=== PATIENT | female | born 1980 | race African-American/Black ===

== ENCOUNTER → 2018-07-17 16:20 | Outpatient (CLI) | payer SELFPAY ==
--- NOTE | 2018-07-17 16:20 | LES_PTH ---
PATIENT: TIMMY RYDER LOC: [facility] U#:[id number] AGE/SX: 44/F ROOM: RE07/17/[address]: Dr. Murphy Fuller MD : [id number] BED: DIS: SPEC #: [id number] RECD: 07/17/18 17:36 STATUS: MELIA INESSA #: [id number] MATT: 07/17/18 16:[address]: Murphy Fuller DEPT: SURGICAL PATHOLOGY RECD BY: Rocio Gallardo ENTERED: 07/20/18 10:36 SP TYPE: Lesion OTHR DR: MD Liliane Melchor, JEWELRY COATER-C Tissues: A - Skin of face, NOS B - Skin of forehead C - Skin of lip, NOS Procedures: Surgery Specimen Level IV HEADER OPERATION: Shave biopsy of central forehead, left lower cheek and left perialar area PRE-OP DIAGNOSIS: Enlarging lesion left lower cheek, central forehead, left perialar area/upper lip TISSUE SUBMITTED: A. Left lower cheek by cervicomandibular area, B. Central forehead, C. Left perialar area/upper lip MICROSCOPIC DIAGNOSIS A. 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 See comment. B. Central forehead lesion, shave biopsy: Trichoepithelioma, desmoplastic type, deep margin involved. See comment. C. Left perialar/upper lip area lesion, shave biopsy: Trichoepithelioma, deep margin involved. See comment. SJ:rg 07/27/18 COMMENT A. The biopsy is superficial and the evaluation is limited. B. The biopsy is superficial and the evaluation is limited. C. The biopsy is superficial and the evaluation is limited. A-C. 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 Genetic disorders, such as multiple familial trichoepithelioma and Eleonora Spiedler syndrome should be ruled out. Clinicopathological correlation is essential. All three specimens were sent to [facility] for expert opinion and reviewed by Dr. Fran Cagle and above diagnosis is rendered. Case has been reviewed in consultation with Dr. Coffey who concurs with the above diagnosis. IDC:CE MICROSCOPIC DESCRIPTION Slides are reviewed. GROSS DESCRIPTION A - Received in fixative is one container labeled with the patient's name and designated left lower cheek by cervicomandibular area. The specimen consists of a shave biopsy of bustillo-brown skin measuring 0.4 x 0.2 x 0.1 cm. The specimen is inked and submitted entirely in one cassette. B - Received in fixative is one container labeled with the patient's name and designated central forehead. The specimen consists of a shave biopsy of bustillo-brown skin measuring 0.6 x 0.4 cm and 0.1 cm in thickness. The specimen is inked and submitted entirely in one cassette. It will be bisected at the time of embedding. C - Received in fixative is one container labeled with the patient's name and designated left perialar area/upper lip. The specimen consists of a round piece of bustillo-white skin measuring 0.2 cm in diameter and 0.1 cm in thickness. The specimen is totally submitted in one cassette. / SJ:doron 07/20/18 TC:1 CPT: 88874 x3
[2018-07-17 16:34] VITALS: BMI 23.4
== END ==
PROVIDERS: Family Provider Family Medicine; PCP Family Medicine; Referring Provider Surgery; Visit Provider Surgery
DX: D49.2 Neoplasm of unspecified behavior of bone, soft tissue, and skin (principal)
CPT/HCPCS: 88305